=== PATIENT | female | born 2000 | race Hispanic/Latino ===

== ENCOUNTER 2021-11-19 08:01 | Emergency (ER) | payer OTHER ==
[~2021-11-19] VITALS: Ht 160 cm; Wt 83.4 kg
[2021-11-19 08:02] VITALS: BP 134/78
[2021-11-19] MEDS ORDERED: ACETAMINOPHEN 325 MG TAB PO ONE (08:45)
== END 2021-11-19 09:36 | disposition home or self-care (01) ==
LOC: M ED 08:01
DX: U07.1 COVID-19 (principal)

== ENCOUNTER → 2025-08-11 | Outpatient (CLI) | payer OTHER | LOC: M RAD 15:37 | PROVIDERS: ATTEND Nurse Practitioner Family | DX: N92.6 Irregular menstruation, unspecified (principal) ==